=== PATIENT | male | born 1945 | race Caucasian/White ===

== ENCOUNTER 2024-03-26 11:27 | Outpatient (CLI) | payer MEDICARE ==
[2024-03-26 12:30] LABS: Hematocrit 45.6 % (38.8-50.0); Mean Corpuscular HGB CONC 32.9 g/dL (32.0-36.0); Mean Corpuscular Hemoglobin 29.9 pg (27.0-33.0); Mean Platelet Volume 9.5 fL (7.4-10.4); Platelet Count 223 10x3/uL (150-450); RBC Distribution Width 12.8 % (11.5-14.5); Red Blood Cell (RBC) Count 5.01 10x6/uL (4.32-5.72); White Blood Cell (WBC) Count 5.5 10x3/uL (3.5-10.5)
[2024-03-26 12:55] LABS: Anion Gap 11 mmol/L (10-20); BUN (Urea Nitrogen) 21 mg/dL (8.4-25.7); Calc. Creatinine Clearance 0 mL/min (70-130); Calcium 10.3 mg/dL (7.8-10.44); Carbon Dioxide 23 mmol/L (23-31); Chloride 107 mmol/L (98-107); Estimated GFR 63; Glucose 94 mg/dL (83-110); Potassium 4.2 mmol/L (3.5-5.1); Sodium 137 mmol/L (136-145)
== END 2024-03-26 11:28 | disposition home or self-care (01) ==
LOC: CSHLAB 11:27
PROVIDERS: ATTEND Specialist
DX: Z01.818 Encounter for other preprocedural examination (principal); R93.1 Abnormal findings on diagnostic imaging of heart and coronary circulation
CPT/HCPCS: 80048; 85027; 85610; 93005; 93010

== ENCOUNTER 2024-03-27 09:20 | Day surgery (SDC) | payer MEDICARE ==
[2024-03-26 11:41] VITALS: BMI 29.5
[2024-03-27] MEDS ORDERED: Heparin 10,000 UNITS/ 10 ML VIAL ONE (09:54)
[2024-03-27] MEDS ORDERED: Nitroglycerin 50 MG/250 ML BOT 250 ML ONE (09:54)
[2024-03-27] MEDS ORDERED: Atropine Sulfate 1 mg/1 ml Vial ONE (09:55)
[2024-03-27] MEDS ORDERED: Lidocaine 1% (PF) 30 ML VIAL ONE (09:55)
[2024-03-27 09:59] VITALS: BP 157/81; TEMP 97.7
[2024-03-27] MEDS ORDERED: fentaNYL 50 mcg/mL 1 mL Vial ONE (11:01)
[2024-03-27] MEDS ORDERED: Midazolam HCl 2 mg/2 ml Vial ONE (11:01)
[2024-03-27] MEDS ORDERED: Iopamidol 300 61% 100 ML VIAL FS ONE (11:02)
[2024-03-27] MEDS ORDERED: PHENYLEPHRINE-NS 100 MCG/ML 10 ML SYRINGE ONE (11:40)
[2024-03-27] MEDS ORDERED: Clopidogrel Bisulfate 300 MG TAB PO SCH (14:30)
== END 2024-03-27 16:00 | disposition home or self-care (01) ==
LOC: CSHSDC 09:20
PROVIDERS: ATTEND Specialist
PROC: 4A023N7 Measurement of Cardiac Sampling and Pressure, Left Heart, Percutaneous Approach (ICD-10-PCS; principal; 2024-03-27)
PROC: B205YZZ Plain Radiography of Left Heart using Other Contrast (ICD-10-PCS; 2024-03-27)
PROC: 02703ZZ Dilation of Coronary Artery, One Artery, Percutaneous Approach (ICD-10-PCS; 2024-03-27)
DX: R07.9 Chest pain, unspecified (principal); I48.0 Paroxysmal atrial fibrillation; R94.39 Abnormal result of other cardiovascular function study; R06.02 Shortness of breath; I10 Essential (primary) hypertension; E78.5 Hyperlipidemia, unspecified; I48.91 Unspecified atrial fibrillation; E78.2 Mixed hyperlipidemia; N40.0 Benign prostatic hyperplasia without lower urinary tract symptoms; I45.10 Unspecified right bundle-branch block; Z86.711 Personal history of pulmonary embolism; Z86.718 Personal history of other venous thrombosis and embolism; Z79.890 Hormone replacement therapy; Z79.899 Other long term (current) drug therapy; Z88.5 Allergy status to narcotic agent; Z88.8 Allergy status to other drugs, medicaments and biological substances; Z95.5 Presence of coronary angioplasty implant and graft
CPT/HCPCS: 92920; 93458; C1725 ×2; C1760; C1769 ×2; C1887; J1644; J2001; J2250; J3010; Q9967; 99152; 99153; J0461